=== PATIENT | male | born 1995 | race African-American/Black ===

== ENCOUNTER 2020-01-20 18:27 | Emergency (ER) | payer OTHER, SELFPAY ==
[2020-01-20] MEDS ORDERED: Ibuprofen 200 MG TAB ONE (21:07)
[2020-01-20] MEDS ORDERED: Acetaminophen 500 MG TAB ONE (21:07)
== END 2020-01-20 21:10 | disposition home or self-care (01) ==
LOC: ERS 18:27
DX: M54.5 Low back pain (principal)
CPT/HCPCS: 99283